=== PATIENT | male | born 1970 | race Caucasian/White ===

== ENCOUNTER 2017-11-28 14:40 | Emergency (ER) | payer BC ==
--- NOTE | 2017-11-28 15:46 | ER Document Report ---
ED Psych Disorder / Suicide - General Chief Complaint: Psych Problem Stated Complaint: PSYCH EVAL Time Seen by Provider: 11/28/17 15:08 Mode of Arrival: Ambulatory Information source: Patient TRAVEL OUTSIDE OF THE [place] IN LAST 30 DAYS: No - HPI Notes: 46-year-old male with history of bipolar disease, depression and anxiety presents with worsening symptoms. He states he recently moved here in June from out of town, does not have a primary care physician and has not found a psychiatric counselor yet. He does continue on his psychiatric medications but basically feels like he is worsening. He states he does not care about anything. He is not suicidal but states he does not feel it would matter if he was . He has no homicidal ideation. He denies history of or current hallucinations or delusions. Denies substance abuse. He does not use alcohol or other drugs. He denies any prior medical problems, hypertension diabetes or cardiovascular disease. He denies really any exacerbating cause for this, just stating "symptoms have been going on for too long". - Related Data Allergies/Adverse Reactions: methylprednisolone [From Solu-Medrol] Allergy (Verified 11/28/17 15:09) Past Medical History - Social History Smoking Status: Never Smoker Chew tobacco use (# tins/day): No Frequency of alcohol use: Rare Drug Abuse: None Family History: Reviewed & Not Pertinent Patient has suicidal ideation: No Patient has homicidal ideation: No Renal/ Medical History: Denies: Hx Peritoneal Dialysis Musculoskeltal Medical History: Reports Hx Arthritis Psychiatric Medical History: Reports: Hx Bipolar Disorder, Hx Depression Past Surgical History: Reports: Hx Orthopedic Surgery Review of Systems - Review of Systems -: Yes All other systems reviewed and negative Physical Exam - Vital signs Vitals: Temp Pulse BP Pulse Ox 97.8 F 112 H 161/125 H 97 11/28/17 15:04 11/28/17 15:04 11/28/17 15:04 11/28/17 15:04 Interpretation: Hypertensive, Tachycardic Notes: On my current exam heart rate is 96 - Notes Notes: GENERAL: VS as per nursing doc. Well-appearing, well-nourished and in no acute distress. HEAD: Atraumatic, normocephalic EYES: Pupils equal round and reactive to light, extraocular movements intact, sclera anicteric, no conjunctival injection or discharge. ENT: Nares patent, oropharynx clear without exudates, moist mucous membranes. NECK: Normal range of motion, supple without lymphadenopathy. LUNGS: Breath sounds clear to auscultation bilaterally and equal. No wheezes rales or rhonchi. HEART: Regular rate and rhythm without murmurs. Peripheral pulses equal. ABDOMEN: Soft, non-tender. BACK: Normal to inspection EXTREMITIES: Normal appearance without edema. NEUROLOGICAL: Cranial nerves grossly intact. Normal speech. Normal sensory and motor exams. No gross cerebellar abnormalities. PSYCH: Oriented 3. Calm, directable. Responses seem somewhat direct and concrete without much elaboration. His affect is somewhat flat. No evidence of hallucinations or delusions. No reported suicidal or homicidal ideation. Normal thought content. Good insight. Speech is appropriate. SKIN: Warm, dry. No lacerations. Course - Vital Signs Vital signs: Temp Pulse Resp BP Pulse Ox 97.6 F 63 16 143/79 H 95 11/29/17 18:36 11/29/17 18:36 11/29/17 18:36 11/29/17 18:36 11/29/17 18:36 - Laboratory Result Diagrams: 11/28/17 15:25 11/28/17 15:25 Laboratory results interpreted by me: 11/28/17 11/28/17 11/28/17 15:25 15:25 15:42 WBC 11.1 H RBC 5.56 H Absolute Eosinophils 0.7 H Glucose 118 H Urine Blood SMALL H Salicylates < 1.0 L Acetaminophen < 10 L - EKG Interpretation by Me Rate: Tachycardia - Sinus tachycardia, rate 104, no evidence of ischemia noted. QRS of normal duration.
[2017-11-28 15:51] LABS: ABSOLUTE BASOPHILS # (AUTO) 0.1 10^3/uL (0.0-0.2); ABSOLUTE EOSINOPHILS # (AUTO) 0.7 10^3/uL (0.0-0.6); ABSOLUTE LYMPHOCYTES (AUTO) 2.8 10^3/uL (0.5-4.7); ABSOLUTE MONOCYTES (AUTO) 0.6 10^3/uL (0.1-1.4); EOSINOPHILS % (AUTO) 5.8 % (0-6); HEMATOCRIT 47.5 % (37.9-51.0); LYMPHOCYTES % (AUTO) 25.2 % (13-45); MEAN CORPUSCULAR HEMOGLOBIN 28.8 pg (27.0-33.4); MEAN CORPUSCULAR HGB CONC 33.8 g/dL (32.0-36.0); MEAN CORPUSCULAR VOLUME 85 fl (80-97); MONOCYTES % (AUTO) 5.1 % (3-13); PLATELET COUNT 285 10^3/uL (150-450); RED BLOOD COUNT 5.56 10^6/uL (4.35-5.55); RED CELL DISTRIBUTION WIDTH 13.6 % (11.5-14.0); SEGMENTED NEUTROPHILS % (AUTO) 62.9 % (42-78); TOTAL CELLS COUNTED % (AUTO) 100 %; WHITE BLOOD COUNT 11.1 10^3/uL (4.0-10.5)
[2017-11-28 16:12] LABS: APPEARANCE,URINE CLEAR; BILIRUBIN,URINE NEGATIVE (NEGATIVE); COLOR,URINE COLORLESS; GLUCOSE, URINE NEGATIVE (NEGATIVE); KETONES,URINE NEGATIVE (NEGATIVE); LEUKOCYTE ESTERASE,URINE NEGATIVE (NEGATIVE); NITRITE,URINE NEGATIVE (NEGATIVE); PROTEIN,URINE NEGATIVE (NEGATIVE); URINE SPECIFIC GRAVITY 1.001; UROBILINOGEN,URINE NEGATIVE mg/dL (<2.0)
[2017-11-28 16:19] LABS: ACETAMINOPHEN < 10 ug/mL (10-30); ALANINE AMINOTRANSFERASE 41 U/L (21-72); ALBUMIN 4.9 g/dL (3.5-5.0); ALCOHOL < 10 mg/dL (NONE DETECTED); ALKALINE PHOSPHATASE 55 U/L (38-126); ANION GAP 11 (5-19); ASPARTATE AMINO TRANSFERASE 24 U/L (17-59); BILIRUBIN,DIRECT 0.2 mg/dL (0.0-0.4); BILIRUBIN,TOTAL 0.4 mg/dL (0.2-1.3); BLOOD UREA NITROGEN 8 mg/dL (7-20); CALCIUM 10.1 mg/dL (8.4-10.2); CARBON DIOXIDE 27 mmol/L (22-30); CHLORIDE 101 mmol/L (98-107); GLUCOSE 118 mg/dL (75-110); LITHIUM 0.6 mEq/L (0.6-1.2); POTASSIUM 4.4 mmol/L (3.6-5.0); SALICYLATE < 1.0 mg/dL (2.0-20.0); SODIUM 139.3 mmol/L (137-145); TOTAL PROTEIN 7.3 g/dL (6.3-8.2)
[2017-11-28 16:26] LABS: URINE AMPHETAMINES SCREEN NEGATIVE; URINE BARBITURATES SCREEN NEGATIVE; URINE BENZODIAZEPINES SCREEN NEGATIVE; URINE MARIJUANA (THC) SCREEN NEGATIVE; URINE METHADONE SCREEN NEGATIVE; URINE PHENCYCLIDINE SCREEN NEGATIVE
[2017-11-28 16:27] LABS: URINE COCAINE SCREEN NEGATIVE
--- NOTE | 2017-11-28 17:20 | PSYCHOLOGICAL NOTE ---
Psych Note - Psych Note Psych Note: Reason for consult: Anxiety, Depression Consent given: Dr. Beavers, psychiatric provider Office number: [phone], Patient is a 46 year old male who presented to the Emergency Department with feelings of anxiety and depression. He stated he wasn't sure "where else to go. " He reported he moved to the [facility] the last week of June 2017. He stated he lives here with his 12 year old son and his and their two other children (16 year old daughter and 7 year old son) still live in [place]. 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 He stated he has had several weeks of feeling like he "doesn't care about anyone else." He stated he will "be fine and then out of nowhere I will be completely bummed out." He stated there was "no trigger" for the onset of the depressive periods. He reported feeling like he would "rather be in a room alone then be around anyone else." He stated he thought it was "better to come here than not." He reported being diagnosed with Bipolar Disorder, Anxiety and Depression. He reported, and his local pharmacy confirmed, he is prescribed [place] 300mg 3 tablets at bedtime, Effexor ER 150 mg daily and Xanax 0.5 mg 1 to 2 tablets 3 times daily. His pharmacy confirmed he picked up 90 tabs of [place] and 30 tabs of Effexor ER on 11/08/2017. The pharmacy confirmed he picked up 90 tabs of Xanax on 2017. Patient denied previous psychiatric hospitalizations or family history of mental health issues. He stated he occasionally drank (once in the last six months) and two months ago he had half of a marijuana edible. Patient denied any other alcohol or drug use. Patient denied suicidal/homicidal ideation, intent or plan. Patient was alert and oriented to person, place, time and circumstance. Mood was guarded with flat affect. Patient denied suicidal/homicidal ideation, intent or plan. It is unclear if he is responding to internal stimuli due to his lack of appropriate eye contact and long pauses in conversational speech. Thought processes appeared organized and linear. Conversational speech was slow for rate, tone and prosody. Intellectual abilities were estimated in the average range. Insight, judgment and impulse control were poor as evidenced by the patient being unable to identify any precipitating events for current behaviors, apathetic mood and poor problem solving abilities. 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 The patient reported his son was picked up from school by a friend. Patient contacted his who has agreed to drive to this area from [place]. His son will be staying with a family friend until the mother reaches the area. Patient provided the nurse with his psychiatric providers contact information for collateral. [phone]. [phone] (F31.9) Unspecified Bipolar and Related Disorder Impression/Plan: Recommend IVC. Patient is not psychiatrically clear. He meets [place] G.S 122C IVC criteria as evidenced by little insight, poor impulse control and poor judgment. Patient appears apathetic and is very resistant to engaging with this case reviewer. He is considered a danger to himself and others at this time. Medication recommendations include discontinuing Effexor and Xanax. Effexor is a tricyclic medication and research shows it can cause manic episodes and hallucinations in individuals diagnosed with Bipolar Disorder. Patient's [place] level is a 0.6. Continue E[place] at 300mg qam and 600mg qhs. Zyprexa 5mg q6 can be utilized prn for agitation. Consulted with Dr. Wolff regarding the care and management of this patient. ED physician in agreement with recommendation and disposition.
--- NOTE | 2017-11-28 18:30 | EKG REPORT ---
SEVERITY:- OTHERWISE NORMAL ECG - SINUS TACHYCARDIA BORDERLINE LEFT AXIS DEVIATION : Confirmed by: Dianne Lang 28-Nov-2017 18:30:18
[2017-11-28] MEDS ORDERED: LITHIUM CARBONATE 300 MG CAPSULE PO ONE (20:33)
[2017-11-28] MEDS ORDERED: OLANZAPINE 5 MG TABLET PO PRN (20:35)
[2017-11-29] MEDS: LITHIUM CARBONATE 300 MG CAPSULE PO SCH (08:15)
--- NOTE | 2017-11-29 09:36 | ER Document Report ---
Doctor's Note Notes: 11/29/17 09:34 As the rounding physician for our psychiatric patients, I have reviewed the chart, vitals, lab work. Patient has been examined and noted to be resting comfortably, he is medications need to be adjusted. I am awaiting mental health in put.
[2017-11-29] MEDS ORDERED: LITHIUM CARBONATE 300 MG CAPSULE PO SCH (18:00)
[2017-11-29] MEDS ORDERED: ACETAMINOPHEN 325 MG TABLET PO ONE (18:58)
--- NOTE | 2017-11-30 07:29 | PSYCHOLOGICAL NOTE ---
Psych Note - Psych Note Psych Note: Reason for consult: Anxiety, Depression Consent given: Dr. Beavers, psychiatric provider Office number: [phone], Patient was asleep when sports coordinator entered the room. Patient was able to sit up and stated he needed a few minutes to wake up before talking. Winderman left and returned approximately 15 minutes later. Patient was sitting up in the bed. He stated he "wasn't sure how I'm feeling." Patient appeared less angry and irritable than the previous evening. He stated he slept well last night. This sports coordinator provided education around medication changes when asked by the patient. Patient wanted to know how long he was going to be in the hospital and stated that would be his 's first question when she arrived. He stated she would be here this morning as she was driving from [place]. Patient confirmed his son had been able to stay at their home last night with supervision. Patient was alert and oriented to person, place, time and circumstance. Mood was guarded with flat affect. Patient denied suicidal/homicidal ideation, intent or plan. Patient does not appear to be responding to internal stimuli at this time as he was able to make eye contact and maintain conversation. Thought processes appeared organized and linear. Conversational speech continued to be slow for rate, tone and prosody. Intellectual abilities were estimated in the average range. Insight, judgment and impulse control continued to be poor as evidenced by the patient's apathy and poor problem solving abilities. The patient stated he wished he had not come in yesterday. He explained if he had not come in yesterday it would not have caused the other people in his life to be inconvenienced. Provided education around meeting patient's mental health needs and how family's have the ability to positively impact his mental health. This sports coordinator also discussed benefits of mental health treament on intermodal dispatcher success of relationships and family dynamics. Attempted to gain collateral information from jillian's previous mental health provider. Called the office of Dr. Lonnie Beavers at 10:36am and left a message, with provider's nurse (Belinda), requesting a return call. No call was returned to gather collateral information. 1. 296.80 (F31.9) Unspecified Bipolar and Related Disorder Impression/Plan: Continue to recommend IVC. Patient is not psychiatrically clear. He continues to meet [place] G.S 122C IVC criteria as evidenced by continued lack of insight, poor impulse control and poor judgment. Patient continues to appear apathetic. He is considered a danger to himself and others at this time. Inpatient psychiatric hospitalization is being sought at this time. Consulted with Dr. Wolff regarding the care and management of this patient.
--- NOTE | 2017-11-30 07:40 | PSYCHOLOGICAL NOTE ---
Psych Note - Psych Note Psych Note: Reason for consult: Anxiety, Depression Consent given: Dr. Beavers, psychiatric provider Office number: [phone], , Sharyn Tran, Patient was sitting upright in the bed with his beside him. Patient again gave verbal consent to involve his in his treatment planning and exchange information. Patient's identified multiple stressors in their relationship , family dynamic, financial situation and living situations. She stated the patient has not had any drastic behavior changes in the past few months. She did stated he has been somewhat more subdued in the past few weeks but that is not a change from previous behavior it has just been more often. She stated she felt the patient's medications (prior to his admission to the Emergency Department) needed to be changed because she felt they were not being as effective. This shower room attendant identified concerns for the patient to include his apathy, lack of support in this geographical location, not having an established provider even though he has been in the area for almost 6 months- which indicates to this shower room attendant he is not prioritizing his mental health needs , and financial stressors. This shower room attendant discussed the need for the patient and his to start discussing ways to address some of the family issues if the patient wanted to be discharged home and not to an inpatient facility. This shower room attendant stressed the need for a safe discharge plan that included support from the family. Patient was alert and oriented to person, place, time and circumstance. Mood was subdued with flat affect. It is notable that the patient engaged more openly and showed more animation than any previous interaction with this provider during this conversation. Patient denied suicidal/homicidal ideation, intent or plan. Patient does not appear to be responding to internal stimuli at this time as he was able to make eye contact and maintain conversation. Thought processes appeared organized and linear. Conversational speech continued to be slow for rate, tone and prosody. Intellectual abilities were estimated in the average range. Insight, judgment and impulse control continued to be poor as evidenced by the patient's apathy and poor problem solving abilities. 1. 296.80 (F31.9) Unspecified Bipolar and Related Disorder Impression/Plan: Continue to recommend IVC. Patient is not psychiatrically clear. He continues to meet [place] G.S 122C IVC criteria as evidenced by continued lack of insight, poor impulse control and poor judgment. Patient continues to appear apathetic, although it is of note that the patient did show more engagement during this evaluation then any other previous interaction. He is still considered a danger to himself and others at this time. Inpatient psychiatric hospitalization is being sought at this time. Patient will be reassessed in the morning and this shower room attendant will determine whether or not family support has been identified to assist the patient with a safe discharge to the community. Consulted with Dr. Wolff regarding the care and management of this patient.
[2017-11-30] MEDS: LITHIUM CARBONATE 300 MG CAPSULE PO SCH (09:01)
--- NOTE | 2017-11-30 09:55 | ER Document Report ---
Doctor's Note Notes: 11/30/17 09:55 As the rounding physician for our social patients, I have reviewed the chart, vitals, lab work. Patient has been examined and noted to be stable . I am awaiting mental health in put.
--- NOTE | 2017-11-30 11:48 | PSYCHOLOGICAL NOTE ---
Psych Note - Psych Note Psych Note: Reason for consult: Anxiety, Depression Consent given: Dr. Beavers, psychiatric provider Office number: [phone], , Sharyn Tran, Patient was sitting upright in the bed with his beside him. Patient and discussed how they were going to ensure the patient has support subsequent to discharge. Patient agreed to follow up with community providers. Patient agreed to continue medication regimen recommended, to include [place] 300mg qam and 600mg qhs, Zyprexa 5mg qhs and Cogentin 1mg. Patient and stated they are able to utilize their local nanny, the patient's boss and the indicated she has talked to their son who lives here to call her if he feels like the patient's behavior has changed. 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 Patient and are both able to verbally identify that their previous level of communication around the patient's mental health was not conducive to him receiving services. They were both able to verbalize the negative impact that lack of communication is having on the patient and that it needs to be altered to provide support. Patient was alert and oriented to person, place, time and circumstance. Mood was subdued with congruent affect. It is notable that the patient engaged openly and acknowledged his previous flat affect and inability to engage. Patient denied suicidal/homicidal ideation, intent or plan. Patient does not appear to be responding to internal stimuli at this time as he was able to make eye contact and maintain conversation. Thought processes appeared organized and linear. Conversational speech was normal for rate, tone and prosody. Intellectual abilities were estimated in the average range. Insight, judgment and impulse control were fair. 1. 296.80 (F31.9) Unspecified Bipolar and Related Disorder Impression/Plan: Recommend rescind IVC. Patient is psychiatrically clear. He no longer continues to meet [place] G.S 122C IVC criteria. Provided education around utilizing support and possible personal consequences and impacts. Provided education around appropriate coping skills. Consulted with Dr. Wolff regarding the care and management of this patient. ED physician in agreement with recommendations and disposition.
[2017-11-30 13:19] VITALS: BP 139/93
== END 2017-11-30 13:32 | disposition home or self-care (01) ==
LOC: ER 14:40
DX: F31.9 Bipolar disorder, unspecified (principal); R00.0 Tachycardia, unspecified; Z79.899 Other long term (current) drug therapy; Z88.8 Allergy status to other drugs, medicaments and biological substances
CPT/HCPCS: 93005; 99285; 36415; 80307 ×4; 80178; 85025; 80053; 81001; 93010; J3490 ×3